=== PATIENT | male | born 1950 | race Caucasian/White ===

== ENCOUNTER 2021-07-16 04:24 | Emergency (ER) | payer OTHER ==
[~2021-07-16] VITALS: Ht 172.7 cm; Wt 122.5 kg
[~2021-07-16 04:24] MED LIST: AMLO10 PO; ASPI81CH PO; ASPI81EC PO; CENTRUM SILVER1 EAC2 PO; DICL75ER PO; DICLOFENAC SODIUM; Diovan320 MG PO; ENOX40I SC; EXFORGE; FLAXSEED OIL1000 MG PO; HYDACE5 PO; HYDCHL25 PO; HYDMOR2 PO; METO25; MULVITMIND PO; Micro-K10 MEQ PO; OFLO.3OPSO LEFTEYE; PENVK500 PO; Pred Forte1 ML LEFTEYE; RXHYDACE PO; TRAM50 PO
[2021-07-16] MEDS ORDERED: CYCL10 PO (04:53)
== END 2021-07-16 05:18 | disposition home or self-care (01) ==
LOC: ER 04:24
DX: M54.50 Low back pain, unspecified (principal); G89.29 Other chronic pain; I10 Essential (primary) hypertension; Z87.891 Personal history of nicotine dependence; Z79.899 Other long term (current) drug therapy; Z79.82 Long term (current) use of aspirin
CPT/HCPCS: A9270; J1885